=== PATIENT | male | born 1980 | race Caucasian/White ===

== ENCOUNTER 2018-10-19 14:17 | Emergency (ER) | payer MEDICAID, SELFPAY ==
[2018-10-19 14:18] VITALS: BP 138/92; PULSE 96; RESP 16; TEMP 36.9; O2SAT 96; BMI 24.5
--- NOTE | 2018-10-19 15:06 | VDLE_ITS ---
Reason For Study: Pain Procedure LEFT Exam performed portable in ED. GSV is normal. A preliminary report was called and/or faxed CFV is compressible, spontaneous, phasic, to ED. competent, and demonstrates normal augmentation. FV is compressible, spontaneous, phasic, competent and demonstrates normal augmentation. POP V is compressible, spontaneous, phasic, competent and demonstrates normal augmentation. T/P Trunk is compressible. PTV is compressible. LT PerV is compressible. Interpretation Summary Deep veins of the left lower extremity are patent and compressible segmentally. There is no evidence of left lower extremity deep vein thrombosis. Valvular competence appears intact within the proximal deep venous system on the left . The left greater saphenous vein appears patent and compressible segmentally. Ordering Physician: Michael Mccabe Performed By: Charo Baker RVT
--- NOTE | 2018-10-19 15:17 | ED.DCSUM_ITS ---
- ER Visit Summary Date of Service: 10/19/18 Chief Complaint: Left leg pain and swelling History of Present Illness: The patient is a 37 M who is a type I diabetic and has left leg pain and swelling. He states he was cutting trees and some of the branches cut into his legs. 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 He has had this for a total of about 4 days. He went to the hospital in [place] and they told him it could be cellulitis but he states he cannot tolerate oral antibiotics and they did not feel he needed IV antibiotics and they discharged him. He does have a history of DVT in the past. He denies fevers. Pain is mostly on the medial portion of the knee down into the lower leg. He denies any drainage for any of the sore areas. Physical Examination: Vital signs reviewed. He is afebrile. Left leg exam reveals mild diffuse swelling. There is diffuse erythema in the mid tibial area below. He has medial left knee tenderness as well. He has 2+ DP pulses bilaterally. Test Results: Duplex ultrasound of the left lower extremity is negative for DVT Emergency Department Course and Treatment: Patient appears to have cellulitis of the left leg. There is no DVT. I will give him 1 dose of IM Rocephin. He states he cannot tolerate pills but cannot tolerate liquid antibiotics. I will give him Keflex suspension. He will follow-up with his primary doctor Treatment Plan: [] Disposition: Discharge Impression: Left lower extremity cellulitis This note was generated with [employer] dictation software. It may contain incorrect words, spelling, and punctuation that were not noted in review of the chart prior to signing ED Disposition - Plan for ED Patient: Referrals: [facility] ,Out of [Primary Care Provider] -
--- NOTE | 2018-10-19 15:25 | NURSING ---
US IN FOR TESTING.
[2018-10-19] MEDS: HYDROcodone Bitartrate/Apap 5/325 Tablet PO (15:38)
[2018-10-19 15:41] VITALS: BP 146/71; PULSE 76; RESP 16; O2SAT 99
--- NOTE | 2018-10-19 16:11 | ED.DEP ---
ED Disposition - Plan for ED Patient: Disposition: Home or Assisted Living Instructions: ED Infec Skin Cellulitis Prescriptions: Cephalexin Suspension [Keflex Suspension] 500 mg PO Q8 #210 ml Referrals: [facility] Doctor,Out of [Primary Care Provider] -
[2018-10-19] MEDS: Ceftriaxone 1 GM Vial IM (16:57)
== END 2018-10-19 17:48 | disposition home or self-care (01) ==
PROVIDERS: Emergency Provider Emergency Medicine
DX: L03.116 Cellulitis of left lower limb (principal); E10.40 Type 1 diabetes mellitus with diabetic neuropathy, unspecified; M79.89 Other specified soft tissue disorders; K21.9 Gastro-esophageal reflux disease without esophagitis; Z72.0 Tobacco use; Z86.718 Personal history of other venous thrombosis and embolism
CPT/HCPCS: 93971; 96372; 99283

== ENCOUNTER 2020-07-03 17:15 | Emergency (ER) | payer MEDICAID, SELFPAY ==
[2020-07-03 17:17] VITALS: BP 132/88; PULSE 88; RESP 18; TEMP 36.4; O2SAT 90; BMI 33.6
--- NOTE | 2020-07-03 17:28 | ED.DCSUM_ITS ---
- ER Visit Summary Date of Service: 07/03/20 Chief Complaint: Puncture wound, left lower leg History of Present Illness: The patient is a 39 M who sustained a puncture wound to the left lower leg. He was moving wood when he was punctured with a cass nail on the left lateral lower leg. His bleeding was controlled. He is not quite sure when his last tetanus shot was so he came in to receive one. He is a type I diabetic. He is on no blood thinning medications. Physical Examination: Vital signs reviewed. HEENT exam unremarkable. Extremities reveal a trace amount of edema. There is a puncture wound on the left lateral lower leg. No bleeding or erythema. Skin exam shows abrasions to the left lower leg and to the left forearm from the fall today. None are infected or bleeding at this time. Neurologic exam normal. Test Results: None performed Emergency Department Course and Treatment: Patient will be given a tetanus update. I will give him Keflex to prevent infection. He will clean the areas and keep them dry. Treatment Plan: [] Disposition: Discharge Impression: Puncture wound, left lower leg This note was generated with [employer] dictation software. It may contain incorrect words, spelling, and punctuation that were not noted in review of the chart prior to signing ED Disposition - Plan for ED Patient: Disposition: Home or Assisted Living Instructions: ED Puncture Wound (General) Referrals: [facility] Doctor,Out of [Primary Care Provider] -
[2020-07-03] MEDS: Diphth,Pertuss(Acell),Tet Vac 0.5 ML Vial IM (17:35)
[2020-07-03] MEDS: Cephalexin 250 MG Capsule 500 MG PO (17:36)
== END 2020-07-03 17:48 | disposition home or self-care (01) ==
PROVIDERS: Emergency Provider Emergency Medicine
DX: S81.832A Puncture wound without foreign body, left lower leg, initial encounter (principal); W45.0XXA Nail entering through skin, initial encounter; Y93.89 Activity, other specified; Y92.9 Unspecified place or not applicable; Y99.9 Unspecified external cause status; E10.9 Type 1 diabetes mellitus without complications; Z79.4 Long term (current) use of insulin; Z72.0 Tobacco use
CPT/HCPCS: 90471; 90715; 99283